=== PATIENT | male | born 1950 | race Caucasian/White ===

== ENCOUNTER 2018-09-25 16:14 | Observation (INO) ==
[2018-09-25] MEDS ORDERED: MORPHINE 4 MG/1 ML VIAL IV STA ×4 (16:47→20:06)
[2018-09-25] MEDS ORDERED: ASPIRIN 325 MG TABLET PO STA (16:47)
[2018-09-25] MEDS ORDERED: FAMOTIDINE 20 MG/2 ML VIAL IV STA (16:49)
[2018-09-25] MEDS ORDERED: ONDANSETRON 4 MG/2 ML VIAL IV ONE (16:50)
[2018-09-25 16:58] LABS: Basophils # 0.1 10*3/uL (0.0-0.2); Basophils % 0.6 % (0.0-0.8); Eosinophils # 0.4 10*3/uL (0.0-0.87); Eosinophils % 3.4 % (0.00-10.9); Hematocrit 35.1 VOL% (42.0-52.0); Hemoglobin 11.8 GM/DL (14.0-18.0); Immature Granulocytes % 0.5 %; Immature Granulocytes Absolute 0.05 #; Lymphocytes # 1.8 10*3/uL (1.4-4.0); Lymphocytes % 16.7 % (21.2-54.2); Mean Corpuscular HGB Conc 33.6 GM/DL (32-36); Mean Corpuscular Volume 90.7 FL (87-102); Mean Platelet Volume 9.5 FL (9.6-12.0); Monocytes % 5.1 % (1.7-12.7); Neutrophils % 73.7 % (38.7-73.9); Platelet Count 309 T/CUMM (130-400); Red Blood Count 3.87 MC/CUMM (3.8-5.5); Red Cell Distribution Width 12.2 % (9.3-17.3); White Blood Count 10.9 T/CUMM (4-12)
[2018-09-25 17:11] LABS: PT Patient Result 10.6 SECS; Partial Thromboplastin Time 24.7 SECS (0-40)
[2018-09-25 17:14] LABS: Albumin 3.6 G/DL (3.4-5.0); Osmolality,Calculated 283.7 MOS/KG (273-304); Total Protein 6.8 G/DL (6.4-8.3)
[2018-09-25] MEDS ORDERED: PROMETHAZINE 25 MG/1 ML VIAL ONE (17:47)
[2018-09-25] MEDS ORDERED: PROMETHAZINE 25 MG/1 ML VIAL IM STA (17:54)
[2018-09-25 18:37] LABS: Apearance,Urine CLEAR (Clear); Bilirubin,Urine Negative (Negative); Blood, Urine Negative (Negative); Glucose,Urine (UA) Negative (Negative); Hyaline Casts,Urine 7 /LPF (0-3); Ketones,Urine 5 mg/dL (Negative); Mucus,Urine Occasional /LPF (Occasional); Nitrite,Urine Negative (Negative); Protein,Urine Negative; Urine Color Yellow (Yellow); Urine Specific Gravity 1.027 (1.001-1.035); Urine Urobilinogen < 2.0 EU/DL (0.2-1.0)
[2018-09-25 18:41] LABS: Barbiturates Screen,Urine Negative (Negative); Benzodiazepines Screen,Urine Negative (Negative); Cannabinoid Screen,Urine Negative (Negative); Opiate Screen,Urine Positive (Negative); Phencyclidine Screen,Urine Negative (Negative)
[2018-09-25] MEDS ORDERED: ONDANSETRON 4 MG/2 ML VIAL IV STA ×2 (18:46→21:03)
[2018-09-25] MEDS ORDERED: MORPHINE 4 MG/1 ML VIAL IV PRN (20:47)
[2018-09-25] MEDS ORDERED: ONDANSETRON 4 MG/2 ML VIAL IV PRN (20:47)
[2018-09-25] MEDS ORDERED: INSULIN REGULAR 100 UNIT/ML SUBCUT ONE (20:47)
[2018-09-25] MEDS ORDERED: LORazepam 2 MG/1 ML VIAL IV PRN (23:40)
[2018-09-26] MEDS ORDERED: HYDROmorphone 2 MG/1 ML VIAL IV PRN (00:04)
[2018-09-26] MEDS: NITROGLYCERIN 2% OINT 1 INCH/GM PACK TOP SCH ×4 (00:27→18:23)
[2018-09-26] MEDS: ENOXAPARIN 40 MG/0.4 ML SYRINGE SUBCUT SCH ×2 (00:27→20:38)
[2018-09-26 05:21] LABS: Albumin 3.3 G/DL (3.4-5.0); Bilirubin,Total 1.8 MG/DL (0.2-1.0); Calcium 8.7 MG/DL (8.5-10.1); Osmolality,Calculated 284.1 MOS/KG (273-304); Total Protein 7.1 G/DL (6.4-8.3)
[2018-09-26 05:24] LABS: Risk Ratio 2.81
[2018-09-26] MEDS ORDERED: KETOROLAC 30 MG/1 ML VIAL IV ONE (09:55)
[2018-09-26 10:34] LABS: Troponin I < 0.015 NG/ML (0.00-0.045)
[2018-09-26] MEDS: MULTIVITAMIN (CENTRUM) TABLET PO SCH (14:28)
[2018-09-26] MEDS: METOPROLOL SUCCINATE XL 100 MG TABLET PO SCH (14:29)
[2018-09-26] MEDS: THIAMINE 100 MG TABLET PO SCH (14:29)
[2018-09-26] MEDS: PANTOPRAZOLE 40 MG TABLET PO SCH (14:29)
[2018-09-26] MEDS: ROSUVASTATIN 20 MG TABLET PO SCH (14:29)
[2018-09-26] MEDS: ASPIRIN EC 81 MG TABLET PO SCH (14:29)
[2018-09-26] MEDS: FOLIC ACID 1 MG TABLET PO SCH (14:29)
[2018-09-26] MEDS: LISINOPRIL/HCTZ 20-25 MG TABLET PO SCH ×2 (14:29→15:05)
[2018-09-26] MEDS: INSULIN REGULAR 100 UNIT/ML SUBCUT SCH ×2 (16:36→20:38)
[2018-09-26] MEDS ORDERED: cefOXitin 2,000 MG in SYRINGE 1 EACH IV ONE (18:01)
[2018-09-26] MEDS: DOCUSATE SODIUM 100 MG CAPSULE PO SCH (20:37)
[2018-09-27] MEDS: NITROGLYCERIN 2% OINT 1 INCH/GM PACK TOP SCH ×2 (01:07→05:08)
[2018-09-27] MEDS ORDERED: cefOXitin 2,000 MG in SYRINGE 1 EACH IV ONE ×2 (02:30→06:30)
[2018-09-27 05:57] LABS: Basophils % 0.4 % (0.0-0.8); Eosinophils # 0.4 10*3/uL (0.0-0.87); Eosinophils % 3.4 % (0.00-10.9); Hematocrit 34.4 VOL% (42.0-52.0); Hemoglobin 11.5 GM/DL (14.0-18.0); Immature Granulocytes % 0.4 %; Immature Granulocytes Absolute 0.04 #; Lymphocytes % 19.2 % (21.2-54.2); Mean Corpuscular HGB Conc 33.4 GM/DL (32-36); Mean Corpuscular Volume 91.5 FL (87-102); Mean Platelet Volume 10.3 FL (9.6-12.0); Neutrophils % 67.6 % (38.7-73.9); Platelet Count 285 T/CUMM (130-400); Red Blood Count 3.76 MC/CUMM (3.8-5.5); Red Cell Distribution Width 12.3 % (9.3-17.3); White Blood Count 10.4 T/CUMM (4-12)
[2018-09-27 06:31] LABS: Albumin 2.8 G/DL (3.4-5.0); Bilirubin,Total 2.2 MG/DL (0.2-1.0); Calcium 8.7 MG/DL (8.5-10.1); Osmolality,Calculated 272.8 MOS/KG (273-304); Total Protein 6.5 G/DL (6.4-8.3)
[2018-09-27] MEDS ORDERED: LIDOCAINE 1%/EPI INJ 20 ML VIAL ONE (07:23)
[2018-09-27] MEDS ORDERED: TISSUE ADHESIVE 1 EACH APPLICATOR TOP ONE (07:23)
[2018-09-27] MEDS ORDERED: LACTATED RINGERS 1,000 ML IV SCH (08:00)
[2018-09-27] MEDS ORDERED: SUGAMMADEX 200 MG/2 ML VIAL IV ONE (08:15)
[2018-09-27] MEDS ORDERED: DEXTROSE 10% 250 ML BAG IV PRN (08:37)
[2018-09-27] MEDS ORDERED: GLUCAGON 1 MG VIAL IM PRN (08:37)
[2018-09-27] MEDS ORDERED: SEVOFLURANE 1 UNIT/15 MINUTE INH ONE (08:38)
[2018-09-27] MEDS ORDERED: PROPOFOL 200 MG/20 ML VIAL IV ONE (08:38)
[2018-09-27] MEDS ORDERED: fentaNYL 100 MCG/2 ML VIAL ONE (08:39)
[2018-09-27] MEDS ORDERED: MIDAZOLAM 2 MG/2 ML VIAL ONE (08:39)
[2018-09-27] MEDS ORDERED: DEXAMETHASONE 4 MG/1 ML VIAL ONE (08:39)
[2018-09-27] MEDS ORDERED: SUCCINYLCHOLINE 200 MG/10 ML VIAL ONE (08:39)
[2018-09-27] MEDS ORDERED: ROCURONIUM 100 MG/10 ML VIAL IV ONE (08:39)
[2018-09-27] MEDS ORDERED: ONDANSETRON 4 MG/2 ML VIAL ONE (08:39)
[2018-09-27] MEDS ORDERED: EZETIMIBE 10 MG TABLET PO SCH (09:00)
[2018-09-27] MEDS: ASPIRIN EC 81 MG TABLET PO SCH (09:46)
[2018-09-27] MEDS: ROSUVASTATIN 20 MG TABLET PO SCH (09:46)
[2018-09-27] MEDS: MULTIVITAMIN (CENTRUM) TABLET PO SCH ×2 (09:46→10:08)
[2018-09-27] MEDS: FOLIC ACID 1 MG TABLET PO SCH (09:46)
[2018-09-27] MEDS: DOCUSATE SODIUM 100 MG CAPSULE PO SCH (09:46)
[2018-09-27] MEDS: PANTOPRAZOLE 40 MG TABLET PO SCH (09:46)
[2018-09-27] MEDS: METOPROLOL SUCCINATE XL 100 MG TABLET PO SCH (09:47)
[2018-09-27] MEDS: INSULIN REGULAR 100 UNIT/ML SUBCUT SCH (09:47)
[2018-09-27] MEDS: THIAMINE 100 MG TABLET PO SCH (09:47)
[2018-09-27] MEDS: LISINOPRIL/HCTZ 20-25 MG TABLET PO SCH (09:48)
[2018-09-27] MEDS ORDERED: MEROPENEM 500 MG in SODIUM CHLORIDE 0.9% 100 ML IV SCH (11:00)
[2018-09-27 12:32] VITALS: BP 154/81
== END 2018-09-27 13:38 | disposition home or self-care (01) ==
LOC: N.ED 16:14 → N.EDINP 16:14 → SUPCPDRO 20:47 → N.4E 22:03
PROVIDERS: ADMIT Internal Medicine; ATTEND Internal Medicine
PROC: LAPCHOL (2018-09-27 07:38)